=== PATIENT | female | born 2000 | race Caucasian/White ===

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

== ENCOUNTER 2018-02-06 23:05 | Emergency (ER) | payer OTHER ==
[2018-02-06 23:13] VITALS: BP 142/86; PULSE 102; RESP 20; TEMP 97.9; O2SAT 100
--- NOTE | 2018-02-06 23:48 | C.PDOC ---
History Of Present Illness 17 year old female, currently 7 weeks , presents with left-sided chest pain. Pain is aggravated by movement and palpation. No associated SOB, sweats, cough, or fever. Patient denies any vaginal bleeding or abdominal pain. Time Seen by Provider: 02/06/18 23:40 Chief Complaint (Nursing): Chest Pain History Per: Patient History/Exam Limitations: no limitations Onset/Duration Of Symptoms: Hrs Current Symptoms Are (Timing): Still Present Past Medical History Reviewed: Historical Data, Nursing Documentation, Vital Signs Vital Signs: Last Vital Signs Temp 97.9 F 02/06/18 23:07 Pulse 102 H 02/06/18 23:07 Resp 20 02/06/18 23:07 BP 142/86 02/06/18 23:07 Pulse Ox 100 02/07/18 00:16 - Medical History PMH: Asthma, Cardia Arrhythmia Surgical History: No Surg Hx - [facility] Procedures FAMILY THERAPY (12/22/13) INDIVID PSYCHOTHERAP NEC (12/22/13) OTHER GROUP THERAPY (12/22/13) Family History: States: No Known Family Hx - Social History Hx Tobacco Use: Yes (light smoker, <10 cigarettes per day ) Hx Alcohol Use: No Hx Substance Use: No - Immunization History Hx Tetanus Toxoid Vaccination: No Hx Influenza Vaccination: No Hx Pneumococcal Vaccination: No Review Of Systems Except As Marked, All Systems Reviewed And Found Negative. Constitutional: Negative for: Fever, Chills, Sweats Cardiovascular: Positive for: Chest Pain Respiratory: Negative for: Cough, Shortness of Breath Gastrointestinal: Negative for: Abdominal Pain Genitourinary: Negative for: Vaginal Bleeding Physical Exam - Physical Exam Appears: Non-toxic, No Acute Distress Skin: Normal Color, Warm, Dry Head: Atraumatic, Normacephalic Eye(s): bilateral: Normal Inspection, PERRL, EOMI Neck: Normal ROM, Supple Chest: Tenderness (to left lateral chest wall area) Cardiovascular: Rhythm Regular, No Murmur Respiratory: Normal Breath Sounds, No Accessory Muscle Use, No Rales, No Rhonchi , No Wheezing Gastrointestinal/Abdominal: Soft, No Tenderness, No Guarding, No Rebound Extremity: Bilateral: Atraumatic, Normal Color And Temperature, Normal ROM Neurological/Psych: Oriented x3, Normal Speech ED Course And Treatment ECG: Interpreted By Me, Viewed By Me ECG Rhythm: Sinus Rhythm ECG Interpretation: Normal, No Acute Changes Interpretation Of ECG: NSE, normal tracings. Rate From EC O2 Sat by Pulse Oximetry: 100 Pulse Ox Interpretation: Normal Medical Decision Making Medical Decision Making: Impression: 17 y/o female with chest pain Time: 23:44 Initial Plan: * Tylenol 650 mg PO Informed patient of normal EKG. Patient counseled regarding medications safe for . Patient is AAOx3, stable for discharge home. Advised to follow up with primary doctor or OB in 1-2 days. Disposition Counseled Patient/Family Regarding: Diagnosis, Need For Followup, Rx Given - Disposition Referrals: [facility] [Outside] Disposition: HOME/ ROUTINE Disposition Time: 23:45 Condition: STABLE Prescriptions: Acetaminophen [Tylenol 325mg tab] 650 mg PO Q4 #20 tab Instructions: Medications and , Chest Pain (DC) Forms: [employer] (Malagasy) - POA Present On Arrival: None - Clinical Impression Clinical Impression: Chest wall pain, - Scribe Statement The provider has reviewed the documentation as recorded by the Scribe (Tari Thompson) Provider Attestation: All medical record entries made by the Scribe were at my direction and personally dictated by me. I have reviewed the chart and agree that the record accurately reflects my personal performance of the history, physical exam, medical decision making, and the department course for this patient. I have also personally directed, reviewed, and agree with the discharge instructions and disposition.
--- NOTE | 2018-02-07 11:26 | CARD ---
APPROVED REPORT EKG Measurement Heart [id number] IA [id number] <Conclusion> Normal sinus rhythm Normal ECG
== END 2018-02-06 23:57 | disposition home or self-care (01) ==
LOC: C.ER 23:05
DX: O26.90 Pregnancy related conditions, unspecified, unspecified trimester (principal); R07.89 Other chest pain; Z3A.00 Weeks of gestation of pregnancy not specified

== ENCOUNTER 2018-12-20 20:46 | Emergency (ER) | payer OTHER ==
[2018-12-20 21:14] VITALS: RESP 20
--- NOTE | 2018-12-20 21:19 | C.PDOC ---
History Of Present Illness 18 year old female presents to the ED for evaluation of chest pain which began around 3 days ago. She reports a burning sensation to her chest wall, across her precordium. She states her pain is intermittent and alternates between the right and left sides of her chest. She reports associated numbness and burning down her left arm and into her left 4th finger. Her symptoms are unrelated to food intake or change in position. Patient states she was evaluated in [facility] one month ago for similar symptoms. She underwent bloodwork to rule out a blood clot and was discharged without any prescriptions. Patient stat es she was asymptomatic following her discharge until the past 3 days. She reports slight nausea. She denies vomiting, headache, shortness of breath. Time Seen by Provider: 12/20/18 21:00 Chief Complaint (Nursing): Chest Pain History Per: Patient History/Exam Limitations: no limitations Onset/Duration Of Symptoms: Days (3) Current Symptoms Are (Timing): Still Present Quality: Burning, "Pain" Associated Symptoms: Nausea Additional History Per: Patient Past Medical History Reviewed: Historical Data, Nursing Documentation, Vital Signs Vital Signs: Last Vital Signs Temp 98.8 F 12/20/18 20:49 Pulse 104 H 12/20/18 20:49 Resp 20 12/20/18 20:49 BP 151/90 H 12/20/18 20:49 Pulse Ox 97 12/20/18 20:49 - Medical History PMH: Asthma, Cardia Arrhythmia Surgical History: No Surg Hx - [facility] Procedures FAMILY THERAPY (12/22/13) INDIVID PSYCHOTHERAP NEC (12/22/13) OTHER GROUP THERAPY (12/22/13) Family History: States: Unknown Family Hx - Social History Hx Tobacco Use: Yes (light smoker, <10 cigarettes per day ) Hx Alcohol Use: No Hx Substance Use: No - Immunization History Hx Tetanus Toxoid Vaccination: No Hx Influenza Vaccination: No Hx Pneumococcal Vaccination: No Review Of Systems Eyes: Negative for: Vision Change Cardiovascular: Positive for: Chest Pain Gastrointestinal: Positive for: Nausea. Negative for: Vomiting Neurological: Positive for: Numbness (left arm, into left 4th finger ). Negative for: Headache Physical Exam - Physical Exam Appears: Non-toxic, No Acute Distress Skin: Normal Color, Warm, Dry Head: Atraumatic, Normacephalic Eye(s): bilateral: Normal Inspection Oral Mucosa: Moist Neck: Normal ROM, Supple Chest: Symmetrical, No Deformity, No Tenderness Cardiovascular: Rhythm Regular, No Murmur Respiratory: Normal Breath Sounds, No Rales, No Rhonchi, No Wheezing Extremity: Normal ROM, Capillary Refill (less than 2 seconds ) Neurological/Psych: Oriented x3, Normal Speech, Normal Cognition ED Course And Treatment - Laboratory Results Result Diagrams: 12/20/18 21:32 12/20/18 21:32 Lab Interpretation: Normal ECG: Interpreted By Me, Viewed By Me ECG Rhythm: Sinus Rhythm Interpretation Of ECG: Normal Sinus Rhythm at rate 94bpm. Rate From EC O2 Sat by Pulse Oximetry: 97 (on RA ) Pulse Ox Interpretation: Normal - Radiology CXR: Interpreted by Me CXR Interpretation: Yes: No Acute Disease Progress Note: Bloodwork, urinalysis, CXR, EKG ordered and reviewed. Reevaluation Time: 22:13 Reassessment Condition: Improved Disposition Counseled Patient/Family Regarding: Studies Performed, Diagnosis, Need For Followup - Disposition Referrals: Shaik Davis MD [Staff Provider] - Disposition: HOME/ ROUTINE Disposition Time: 22:16 Condition: STABLE Instructions: Chest Pain That Is Not Caused by the Heart (DC) Forms: [facility] (Belarusian) - Clinical Impression Clinical Impression: Non-cardiac chest pain - Scribe Statement The provider has reviewed the documentation as recorded by the Scribe (Caitlin Carmen) Provider Attestation: All medical record entries made by the Scribe were at my direction and personally dictated by me. I have reviewed the chart and agree that the record accurately reflects my personal performance of the history, physical exam, medical decision making, and the department course for this patient. I have also personally directed, reviewed, and agree with the discharge instructions and disposition.
[2018-12-20 21:43] LABS: BASO % 0.5 % (0.0-2.0); EOS # 0.4 K/uL (0.0-0.7); EOS % 4.7 % (0.0-4.0); HEMOGLOBIN 13.8 g/dL (11.0-16.0); LYMPH # 2.8 K/uL (1.0-4.3); LYMPH % 31.8 % (20.0-40.0); MEAN CELL VOLUME 74.7 fL (81.0-99.0); MEAN CORPUSCULAR HEMOGLOBIN 24.2 pg (27.0-31.0); MEAN CORPUSCULAR HGB CONC 32.4 g/dL (33.0-37.0); MEAN PLATELET VOLUME 8.5 fL (7.2-11.7); MONO # 0.8 K/uL (0.0-0.8); MONO % 8.8 % (0.0-10.0); NEUT # 4.7 K/uL (1.8-7.0); NEUT % 54.2 % (50.0-75.0); NRBC % 0.1 % (0.0-2.0); RBC 5.68 Mil/uL (3.80-5.20); RED CELL DISTRIBUTION WIDTH 15.1 % (11.5-14.5); WHITE BLOOD COUNT 8.7 K/uL (4.8-10.8)
[2018-12-20 21:48] LABS: ALB/GLOB RATIO 1.4 (1.0-2.1); ALBUMIN 4.5 g/dL (3.5-5.0); ALT/SGPT 30 U/L (9-52); AST/SGOT 26 U/L (14-36); BLOOD UREA NITROGEN 9 mg/dL (7-17); CALCIUM 9.1 mg/dl (8.6-10.4); GFR NON-AFRICAN AMERICAN > 60
[2018-12-20 22:27] VITALS: BP 138/86; PULSE 84; TEMP 98.7; O2SAT 100
--- NOTE | 2018-12-21 10:21 | RAD ---
HISTORY: chest pain COMPARISON: None available TECHNIQUE: Chest, one view. FINDINGS: LUNGS: Hypoinflation. No focal consolidation. Please note that chest x-ray has limited sensitivity for the detection of pulmonary masses. PLEURA: No significant pleural effusion identified. No definite pneumothorax . CARDIOVASCULAR: Heart size appears within normal limits. No significant atherosclerotic calcification present. OSSEOUS STRUCTURES: Degenerative changes. VISUALIZED UPPER ABDOMEN: Unremarkable. OTHER FINDINGS: None. IMPRESSION: No focal consolidation.
--- NOTE | 2018-12-21 20:08 | CARD ---
APPROVED REPORT Date of service: 12/20/2018 EKG Measurement Heart [id number] <Conclusion> Normal sinus rhythm Normal ECG
== END 2018-12-20 22:27 | disposition home or self-care (01) ==
LOC: C.ER 20:46
DX: R07.89 Other chest pain (principal)

== ENCOUNTER 2019-01-03 20:18 | Emergency (ER) | payer OTHER ==
--- NOTE | 2019-01-03 21:04 | C.PDOC ---
History Of Present Illness 18 year old female presents to the ED complaining of intermittent chest tightness that radiates to her left arm and down to left index finger for 2 weeks. Also reports she feels pain in her jaw, ears, and teeth. Notes symptoms are not related to any physical activity or position changes. Also complains of new onset abdominal discomfort that is intermittent in nature and not associated with any food or diet changes. Denies any shortness of breath, nausea, cough, fever, chills. Reports she was seen by CAMACHO Capone, and was prescribed blood pressure medications and muscle relaxers. [place] [facility] [place] [facility] where full workups were done and both were negative. States symptoms have been persistent. Reports hx of smoking. Time Seen by Provider: 01/03/19 20:39 Chief Complaint (Nursing): Chest Pain History Per: Patient History/Exam Limitations: no limitations Onset/Duration Of Symptoms: Days Current Symptoms Are (Timing): Still Present Quality: Tightness Associated Symptoms: denies: Nausea, Dyspnea, Diaphoresis Additional History Per: Prior Records Past Medical History Reviewed: Historical Data, Nursing Documentation, Vital Signs Vital Signs: Last Vital Signs Temp 98.3 F 01/03/19 20:23 Pulse 96 H 01/03/19 20:23 Resp 22 01/03/19 20:23 BP 135/87 01/03/19 20:23 Pulse Ox 99 01/03/19 20:23 - Medical History PMH: Asthma, Cardia Arrhythmia (no follow up), HTN (takes a BP med ?? NAME) Surgical History: No Surg Hx - [facility] Procedures FAMILY THERAPY (12/22/13) INDIVID PSYCHOTHERAP NEC (12/22/13) OTHER GROUP THERAPY (12/22/13) Family History: States: No Known Family Hx - Social History Hx Tobacco Use: Yes (light smoker, <10 cigarettes per day ) Hx Alcohol Use: No Hx Substance Use: No - Immunization History Hx Tetanus Toxoid Vaccination: No Hx Influenza Vaccination: No Hx Pneumococcal Vaccination: No Review Of Systems Constitutional: Negative for: Fever, Chills Cardiovascular: Positive for: Other (chest tightness) Respiratory: Negative for: Cough, Shortness of Breath Musculoskeletal: Positive for: Arm Pain (left ), Other (pain to ears, jaw, and teeth ) Physical Exam - Physical Exam Appears: Non-toxic, No Acute Distress Skin: Warm, Dry Head: Normacephalic Eye(s): bilateral: Normal Inspection Nose: Normal Oral Mucosa: Moist Neck: Supple Chest: Symmetrical Cardiovascular: Rhythm Regular Respiratory: Normal Breath Sounds, No Rales, No Rhonchi, No Wheezing Gastrointestinal/Abdominal: Soft, No Tenderness Neurological/Psych: Oriented x3, Normal Speech Gait: Steady ED Course And Treatment - Laboratory Results Result Diagrams: 01/03/19 21:04 01/03/19 21:04 Lab Interpretation: Normal ECG: Interpreted By Me ECG Rhythm: Sinus Rhythm ECG Interpretation: Normal O2 Sat by Pulse Oximetry: 99 (RA) Pulse Ox Interpretation: Normal Reevaluation Time: 23:04 Reassessment Condition: Improved (Patient remains comfortable and asymptomatic in ED.) Medical Decision Making Medical Decision Making: Plan - EKG - Bloodwork - UA Disposition Counseled Patient/Family Regarding: Studies Performed, Diagnosis, Need For Followup - Disposition Referrals: Shaik Davis MD [Staff Provider] - Disposition: HOME/ ROUTINE Disposition Time: 23:05 Condition: STABLE Instructions: Chest Pain That Is Not Caused by the Heart (DC) Forms: [employer] (Irish) - Clinical Impression Clinical Impression: Non-cardiac chest pain - Scribe Statement The provider has reviewed the documentation as recorded by the Scribe Rona Caballero All medical record entries made by the Scribe were at my direction and personally dictated by me. I have reviewed the chart and agree that the record accurately reflects my personal performance of the history, physical exam, medical decision making, and the department course for this patient. I have also personally directed, reviewed, and agree with the discharge instructions and disposition.
[2019-01-03 21:10] LABS: EOS # 0.4 K/uL (0.0-0.7); EOS % 5.5 % (0.0-4.0); HEMOGLOBIN 14.5 g/dL (11.0-16.0); LYMPH # 3.8 K/uL (1.0-4.3); LYMPH % 47.3 % (20.0-40.0); MEAN CELL VOLUME 73.9 fL (81.0-99.0); MEAN CORPUSCULAR HEMOGLOBIN 23.9 pg (27.0-31.0); MEAN CORPUSCULAR HGB CONC 32.3 g/dL (33.0-37.0); MEAN PLATELET VOLUME 8.4 fL (7.2-11.7); MONO # 0.8 K/uL (0.0-0.8); MONO % 10.4 % (0.0-10.0); NEUT % 36.8 % (50.0-75.0); NRBC % 0.1 % (0.0-2.0); RBC 6.09 Mil/uL (3.80-5.20); RED CELL DISTRIBUTION WIDTH 14.5 % (11.5-14.5)
[2019-01-03 21:13] LABS: SQUAMOUS EPITHIAL < 1 /hpf (0-5); URINE BACTERIA MOD (<OCC); URINE BILIRUBIN NEGATIVE (NEGATIVE); URINE BLOOD NEGATIVE (NEGATIVE); URINE CLARITY Clear (Clear); URINE COLOR Straw (YELLOW); URINE GLUCOSE (UA) NORMAL (Normal); URINE LEUKOCYTE ESTERASE TRACE Leu/uL (Negative); URINE PROTEIN NEGATIVE (NEGATIVE); URINE UROBILINOGEN NORMAL mg/dL (0.2-1.0)
[2019-01-03 21:17] LABS: HCG,QUALITATIVE URINE NEGATIVE (NEGATIVE)
[2019-01-03 21:25] LABS: ALB/GLOB RATIO 1.4 (1.0-2.1); ALBUMIN 4.6 g/dL (3.5-5.0); ALT/SGPT 26 U/L (9-52); AST/SGOT 26 U/L (14-36); BLOOD UREA NITROGEN 11 mg/dL (7-17); CALCIUM 9.4 mg/dl (8.6-10.4); GFR NON-AFRICAN AMERICAN > 60; LIPASE 86 U/L (23-300)
[2019-01-03 23:12] VITALS: BP 127/74; PULSE 84; RESP 18; TEMP 98; O2SAT 97
== END 2019-01-03 23:12 | disposition home or self-care (01) ==
LOC: C.ER 20:18
DX: R07.89 Other chest pain (principal); I10 Essential (primary) hypertension; I49.9 Cardiac arrhythmia, unspecified; J45.909 Unspecified asthma, uncomplicated; F17.210 Nicotine dependence, cigarettes, uncomplicated

== ENCOUNTER 2019-03-02 20:29 | Emergency (ER) | payer SELFPAY ==
[2019-03-02 21:10] VITALS: TEMP 98.2
--- NOTE | 2019-03-02 21:18 | C.PDOC ---
History Of Present Illness 18 year old female with no significant PMHx presents to the ED complaining of suprapubic pain since 6:00pm yesterday. Patient also noticed some spotting when wiping. She reports noticing watery discharge from the vagina. +New male sexual partner 3 weeks ago. Otherwise patient denies any dysuria, vomiting, diarrhea or constipation. LMP was 02/03/19. Time Seen by Provider: 03/02/19 20:40 Chief Complaint (Nursing): Female Genitourinary History Per: Patient History/Exam Limitations: no limitations Onset/Duration Of Symptoms: Days (x 2) Current Symptoms Are (Timing): Still Present Associated Symptoms: Other (Vaginal discharge) Abnormal Vaginal Bleeding: Yes Last Menstral Period: 02/03 Past Medical History Reviewed: Historical Data, Nursing Documentation, Vital Signs Vital Signs: Last Vital Signs Temp 98.2 F 03/02/19 21:04 Pulse 92 H 03/02/19 21:04 Resp 18 03/02/19 21:04 BP 120/85 03/02/19 21:04 Pulse Ox 100 03/02/19 21:04 Primary Care Physician: Shaik Susan CORTEZ - Medical History PMH: Asthma, Cardia Arrhythmia (no follow up), HTN (takes a BP med ?? NAME) - [employer] Procedures FAMILY THERAPY (12/22/13) INDIVID PSYCHOTHERAP NEC (12/22/13) OTHER GROUP THERAPY (12/22/13) Family History: States: Unknown Family Hx - Social History Hx Tobacco Use: Yes (light smoker, <10 cigarettes per day ) Hx Alcohol Use: Yes Hx Substance Use: No - Immunization History Hx Tetanus Toxoid Vaccination: No Hx Influenza Vaccination: No Hx Pneumococcal Vaccination: No Review Of Systems Constitutional: Negative for: Fever, Chills Cardiovascular: Negative for: Chest Pain Respiratory: Negative for: Cough, Shortness of Breath Gastrointestinal: Positive for: Abdominal Pain. Negative for: Vomiting, Diarrhea, Constipation Genitourinary: Positive for: Vaginal Discharge, Vaginal Bleeding. Negative for: Dysuria, Frequency Musculoskeletal: Negative for: Back Pain Skin: Negative for: Rash Neurological: Negative for: Weakness, Numbness Physical Exam - Physical Exam Appears: Well, Non-toxic, No Acute Distress Skin: Normal Color, Warm, No Rash Head: Atraumatic, Normacephalic Eye(s): bilateral: Normal Inspection (no scleral icterus), PERRL, EOMI Oral Mucosa: Moist Neck: Normal ROM, Supple Chest: Symmetrical Respiratory: No Accessory Muscle Use, Other (Normal inspiratory effort) Gastrointestinal/Abdominal: Soft, Tenderness (on palpation of the lower abdomen), No Distention, No Guarding Back: Other (Ambulating with steady upright gait) Pelvic: Vaginal Discharge (thin yellowish discharge), Cervical Motion Tenderness, Adnexal Tenderness, Tender Uterus Extremity: Bilateral: Atraumatic, Normal ROM Pulses: Left Radial: Normal, Right Radial: Normal Neurological/Psych: Oriented x3, Normal Cranial Nerves ED Course And Treatment O2 Sat by Pulse Oximetry: 100 (RA) Pulse Ox Interpretation: Normal Medical Decision Making Medical Decision Making: Impression: Suprapubic pain, Vaginal discharge Initial Plan: - UA and urine POC pending - GC/chlamydia swab sent Pelvic exam reveals +thin yellowish discharge and tenderness throughout. (chaperoned by KIRSTEN Bejarano) Will treat patient empirically with PO Doryx, Flagyl, and IM Rocephin. Disposition Counseled Patient/Family Regarding: Diagnosis, Need For Followup, Rx Given - Disposition Referrals: Shaik Davis MD [Primary Care Provider] - Disposition: HOME/ ROUTINE Disposition Time: 22:06 Condition: STABLE Prescriptions: Doxycycline Monohydrate 100 mg PO BID 10 Days tablet Instructions: Pelvic Inflammatory Disease (DC) Forms: [facility] (Togolese), General Discharge Instructions - Clinical Impression Clinical Impression: Pelvic inflammatory disease (PID) - PA / BREAKFAST COOK / Resident Statement MD/DO has reviewed & agrees with the documentation as recorded. - Scribe Statement The provider has reviewed the documentation as recorded by the Scribaristides Thompson All medical record entries made by the Scribe were at my direction and personally dictated by me. I have reviewed the chart and agree that the record accurately reflects my personal performance of the history, physical exam, medical decision making, and the department course for this patient. I have also personally directed, reviewed, and agree with the discharge instructions and disposition.
[2019-03-02] MEDS ORDERED: cefTRIAXone (Rocephin) 250 mg Inj IM STA (21:48)
[2019-03-02 22:12] LABS: SQUAMOUS EPITHIAL 4 /hpf (0-5); URINE BACTERIA RARE (<OCC); URINE BILIRUBIN NEGATIVE (NEGATIVE); URINE BLOOD 1+ (NEGATIVE); URINE CLARITY Hazy (Clear); URINE COLOR Straw (YELLOW); URINE GLUCOSE (UA) NORMAL (Normal); URINE HYALINE CAST 0-2 /lpf (0-2); URINE LEUKOCYTE ESTERASE 3+ Leu/uL (Negative); URINE PROTEIN NEGATIVE (NEGATIVE); URINE UROBILINOGEN NORMAL mg/dL (0.2-1.0)
[2019-03-02 23:08] VITALS: BP 118/80; PULSE 80; RESP 14
[2019-03-03 06:00] VITALS: O2SAT 100
== END 2019-03-02 23:07 | disposition home or self-care (01) ==
LOC: SUPCPDRO 20:29 → C.ER 20:29
DX: N73.9 Female pelvic inflammatory disease, unspecified (principal)
CPT/HCPCS: 81001; 81025; 87491; 87591; 96372; 99284; J0696